=== PATIENT | female | born 1975 | race Caucasian/White ===

== ENCOUNTER → 2018-09-12 | Day surgery (SDC) | payer BC ==
[~2018-09-12] MED LIST: ALBUTEROL SULFATE 2.5 MG/3 ML NEBU. NEB PRN; AMAN100C7 PO; ATROPINE 0.5 MG/5 ML DISP.SYRIN. IV PRN; CETI10TA16 PO; CHOL200074 PO; CRAN1POW MC; DIME1CAP PO; LIDOCAINE 2% PF Vial for OR 5 ML VIAL. ONE; LISI10TA2 PO; NALOXONE 0.4 MG/ML VIAL. IV PRN; NAPR-695 PO; NORG1TAB11 PO; OLOP30.5 NS; OMEG300C PO; ONDANSETRON PF 4 MG/2 ML VIAL. IV PRN; PROPOFOL 40 ML IV ONE; TERI7TAB PO; TURM500C4 PO; VITA100T5 PO; VITA80003 PO; diphenhydrAMINE 50 MG/ML VIAL IV PRN
[2018-09-12] MEDS: IV RINGERS SOLUTION,LACTATED 1,000 ML IV SCH (07:36)
[2018-09-12 07:45] LABS: U PREG PATIENT NEGATIVE (NEG)
[2018-09-12 09:02] VITALS: BP 107/77
== END | disposition home or self-care (01) ==
LOC: SURG 07:06
PROVIDERS: ATTEND Internal Medicine Gastroenterology
DX: R10.31 Right lower quadrant pain (principal); R19.7 Diarrhea, unspecified; I10 Essential (primary) hypertension; K21.9 Gastro-esophageal reflux disease without esophagitis; Z72.89 Other problems related to lifestyle; Z87.442 Personal history of urinary calculi; Z88.0 Allergy status to penicillin; Z88.5 Allergy status to narcotic agent; Z79.899 Other long term (current) drug therapy; G35 Multiple sclerosis
CPT/HCPCS: 45380; 81025; J2704; J7120; J2001

== ENCOUNTER → 2018-09-19 | Outpatient (CLI) | payer BC ==
[2018-09-12 09:02] VITALS: BP 107/77
[~2018-09-19] MED LIST changes: -ALBUTEROL SULFATE 2.5 MG/3 ML NEBU. NEB PRN; -ATROPINE 0.5 MG/5 ML DISP.SYRIN. IV PRN; -LIDOCAINE 2% PF Vial for OR 5 ML VIAL. ONE; -NALOXONE 0.4 MG/ML VIAL. IV PRN; -ONDANSETRON PF 4 MG/2 ML VIAL. IV PRN; -PROPOFOL 40 ML IV ONE; -diphenhydrAMINE 50 MG/ML VIAL IV PRN
[2018-09-19] MEDS: IOHEXOL 300 MG/ML 75 ML VIAL. IV ONE (12:22)
--- NOTE | 2018-09-19 14:47 | RAD ---
CT of the abdomen and pelvis with contrast, 09/19/2018: History: Constipation Multidetector CT imaging was performed following oral administration of Volumen and IV administration of 75 cc of Omnipaque 300. Multiplanar reconstructions were produced. The small bowel loops are of normal caliber. There is no evidence of fold thickening. No colonic abnormality is seen. No hepatic abnormality is detected. The gallbladder is unremarkable. The pancreas shows no mass. The spleen is of normal size. The kidneys show no evidence of obstruction or mass. No adrenal abnormality is detected. The abdominal aorta is of normal caliber. No abdominal or pelvic adenopathy is detected. The uterus is anteverted and deviated to the left of midline. No free fluid or free air is evident in the abdomen or pelvis. Elongated sclerotic foci in the T12 and L1 vertebral bodies are likely due to old trauma. IMPRESSION: No acute abdominal or pelvic abnormality is detected. PQRS Compliance Statement: One or more of the following individualized dose reduction techniques were utilized for this examination: 1. Automated exposure control 2. Adjustment of the mA and/or kV according to patient size 3. Use of iterative reconstruction technique
== END | disposition home or self-care (01) ==
LOC: CT 10:28
PROVIDERS: ATTEND Internal Medicine Gastroenterology
DX: R19.7 Diarrhea, unspecified (principal); K59.00 Constipation, unspecified; N85.4 Malposition of uterus
CPT/HCPCS: 74170; Q9967